=== PATIENT | female | born 1955 | race Caucasian/White ===

== ENCOUNTER → 2018-04-10 08:22 | Outpatient (CLI) | payer OTHER, SELFPAY ==
--- NOTE | 2018-04-10 08:25 | BI_ITS ---
MAMMOGRAPHY - BILATERAL SCREENING 3-D JANAK SYNTHESIS REASON FOR EXAM: Female, 62 years old. Bilateral Screening 3-D tomosynthesis PERTINENT HISTORY: No significant family history. TECHNIQUE: 2-D mammograms and 3-D Janak synthesis of the breast (s) were performed. CAD was performed. COMPARISON: None. FINDINGS: The breast composition is composed of scattered fibroglandular density. Scattered benign calcifications are seen. No dense spiculated masses or suspicious microcalcifications are identified. No architectural distortion is identified. There is no skin thickening or retraction. There has been no significant change since the prior study. BI/SCREENING MAMM (CAD), BILAT IMPRESSION: No mammographic signs of malignancy. Routine yearly mammograms recommended. ASSESSMENT CATEGORY: BIRADS Category 1: Negative. A letter regarding these results will be sent to the patient by the facility within 30 days. FOLLOW UP RECOMMENDATION: Yearly follow up mammogram recommended. (A) Approximately 10% of breast cancers are not detected by mammography. A normal mammogram should not delay biopsy of a clinically suspicious abnormality. Electronically Signed: Mayito Aranda MD at 8:40 EDT , Service support ,
== END ==
PROVIDERS: Family Provider Family Medicine; PCP Family Medicine; Visit Provider Obstetrics & Gynecology
DX: Z12.31 Encounter for screening mammogram for malignant neoplasm of breast (principal)
CPT/HCPCS: 77063; 77067

== ENCOUNTER → 2018-05-23 08:24 | Outpatient (CLI) | payer OTHER, SELFPAY ==
[2018-05-30 11:22] LABS: HPV APTIMA, High Risk Negative (Negative)
== END ==
PROVIDERS: Family Provider Family Medicine; PCP Family Medicine; Visit Provider Obstetrics & Gynecology
DX: Z12.4 Encounter for screening for malignant neoplasm of cervix (principal)
CPT/HCPCS: 88175; G0145

== ENCOUNTER → 2019-05-02 | Outpatient (CLI) | payer OTHER, SELFPAY ==
[2019-04-18 08:32] VITALS: BMI 47.3
--- NOTE | 2019-05-02 11:01 | BI_ITS ---
MAMMOGRAPHY - BILATERAL SCREENING REASON FOR EXAM: Female, 63 years old. Routine annual screening examination. PERTINENT HISTORY: Non-contributory. TECHNIQUE: Digital bilateral breast janak (3D mammographic acquisition) in the CC and MLO projections. 2-D mediolateral oblique (MLO) and craniocaudad (CC) views of both breasts were obtained. CAD: Full Field Digital Mammography with Computer Added Detection was performed. COMPARISON: Comparison is made with prior study April 10, 2018. FINDINGS: Breast Composition: There are scattered areas of fibroglandular density. There are no dominant masses or suspicious calcifications. No other significant abnormalities are identified. There has been no significant change since the prior study. BI/SCREEN MAMM (CAD) W/JANAK BILAT IMPRESSION: Stable bilateral screening mammogram. Yearly follow-up mammogram recommended. (A) ASSESSMENT CATEGORY: BIRADS Category 1: Negative. A letter regarding these results will be sent to the patient by the facility within 30 days. Approximately 10% of breast cancers are not detected by mammography. A normal mammogram should not delay biopsy of a clinically suspicious abnormality. [id number] Electronically Signed: Kraig Hancock, at 12:51 EDT , Service support ,
== END | disposition home or self-care (01) ==
LOC: OPBI 10:59
PROVIDERS: Family Provider Family Medicine; PCP Family Medicine; Referring Provider Obstetrics & Gynecology; Visit Provider Obstetrics & Gynecology
DX: Z12.31 Encounter for screening mammogram for malignant neoplasm of breast (principal)
CPT/HCPCS: 77063; 77067

== ENCOUNTER → 2019-07-18 | Outpatient (CLI) | payer OTHER, SELFPAY ==
[2019-07-18 09:51] VITALS: BMI 47.3
[2019-07-18 10:42] LABS: Absolute Lymphocyte Count 1.47 X10^3/uL (0.83-4.51); Absolute Neutrophil Count 3.5 X10^3/uL (2.0-7.7); Basophil# 0.05 X10^3/uL; Basophil% 0.9 % (0-1); Eosinophil# 0.04 X10^3/uL; Eosinophils% 0.7 % (0-5); Hematocrit 45.6 % (37-47); Hemoglobin 14.8 g/dL (12.0-15.0); Lymphocyte # 1.47 X10^3/ul (4.0); Lymphocyte % 26.7 % (19-41); Mean Corp Hgb Conc 32.5 g/dL (32-36); Mean Corpuscular Hgb 31.4 pg (27.0-32.0); Mean Corpuscular Volume 96.8 fL (81-99); Monocyte# 0.46 X10^3/uL; Monocyte% 8.4 % (0-10); NRBC Flagged by Analyzer 0 % (0-5); Neutrophil # 3.47 X10^3/uL (2.7-7.7); Neutrophil % 63.1 % (47-70); Platelet Count 177 K/mm3 (150-450); RBC Distribution Width CV 12.1 % (11.6-14.6); RBC Distribution Width SD 43.8 fl (35.1-43.9); Red Blood Count 4.71 M/mm3 (4.2-5.4); White Blood Count 5.5 K/mm3 (4.4-11.0)
[2019-07-18 11:06] LABS: Thyroid Stim Hormone (TSH) 2.78 uIU/mL (0.358-3.74)
== END | disposition home or self-care (01) ==
LOC: PAVLAB 10:12
PROVIDERS: Family Provider Family Medicine; PCP Family Medicine; Referring Provider Nurse Practitioner Women's Health; Visit Provider Nurse Practitioner Women's Health
DX: R23.2 Flushing (principal)
CPT/HCPCS: 36415; 84443; 85025

== ENCOUNTER → 2020-05-04 08:12 | Outpatient (CLI) | payer OTHER, SELFPAY ==
[2019-07-18 09:51] VITALS: BMI 47.3
[2019-11-25 08:49] VITALS: BMI 47.3
--- NOTE | 2020-05-04 08:13 | BI_ITS ---
MAMMOGRAPHY - BILATERAL SCREENING 3-D TOMOSYNTHESIS REASON FOR EXAM: Female, 64 years old. Routine screening PERTINENT HISTORY: NO FAM HX -- GAINED 40# -- NO SX -- BILAT HEMANGIOMAS. TECHNIQUE: 2-D mammograms and 3-D Tomosynthesis of the breast (s) were performed. CAD was performed. COMPARISON: 05/02/2019 FINDINGS: The breast composition is composed of scattered fibroglandular density. Scattered benign calcifications are seen. No dense spiculated masses or suspicious microcalcifications are identified. No architectural distortion is identified. There is no skin thickening or retraction. There has been no significant change since the prior study. BI/SCREEN MAMM (CAD) W/JANAK BILAT IMPRESSION: No mammographic signs of malignancy. Routine yearly mammograms recommended. ASSESSMENT CATEGORY: BIRADS Category 2: Benign. A letter regarding these results will be sent to the patient by the facility within 30 days. FOLLOW UP RECOMMENDATION: Yearly follow up mammogram recommended. (A) Approximately 10% of breast cancers are not detected by mammography. A normal mammogram should not delay biopsy of a clinically suspicious abnormality. Electronically Signed: Mayito Aranda MD at 11:04 EDT , Service support ,
== END ==
PROVIDERS: PCP Family Medicine; Referring Provider Obstetrics & Gynecology; Visit Provider Obstetrics & Gynecology
DX: Z12.31 Encounter for screening mammogram for malignant neoplasm of breast (principal)
CPT/HCPCS: 77063; 77067

== ENCOUNTER → 2020-09-15 13:17 | Outpatient (CLI) | payer OTHER, MEDICARE, SELFPAY ==
[2020-08-21 10:50] VITALS: BMI 41.1
[2020-09-15 14:07] VITALS: PULSE 109; PULSE 114; PULSE 121; PULSE 132; PULSE 134; PULSE 136; PULSE 82; PULSE 84; O2SAT 88; O2SAT 91; O2SAT 93; O2SAT 94; O2SAT 97; O2SAT 98
--- NOTE | 2020-09-15 14:10 | CPS ---
Patient states she currently wears 3 lpm O2 at home and came in on home O2 tank. Patient was 97% on room air so testing was started on room air. At the 4th minute adore patient wanted to take a rest, SpO2 89% then dropped to 88%, patient rested for about 5 seconds and SpO2 went up to 94%. Patient stated she could feel her heart racing and rested for another 20 seconds before starting to walk again. Patient did complete the rest of the test on room air.
--- NOTE | 2020-09-16 08:47 | PCM.PSN.6M ---
PSN 6 Minute Walk Test - 6 Minute Walk Test 6 Minute Walk Test: 6 Minute Walk Test PSN:6-Minute Walk Test Start: 09/15/20 14:07 Freq: Status: Active Protocol: RESP.6MINW Document 09/15/20 14:07 [facility] (Rec: 09/15/20 14:14 [facility] [id number]) 6 Minute Walk Test Date Performed 09/15/20 Time Performed 13:30 Height 5 ft 3 in Weight: 245 lb Weight in Pounds 245.[address]: Ciaran Fitzpatrick Assistive device used: None Pre-test Oxygen Delivery Method Room Air Pulse Ox (%) 97 Pulse Rate (60-100 beats/min) 84 Dyspnea Radha Scale (0-10) 0 Exertion Radha Scale (6-20) 6 1st minute Oxygen Delivery Method Room Air Pulse Ox (%) 97 Pulse Rate (60-100 beats/min) 114 H 2nd minute Oxygen Delivery Method Room Air Pulse Ox (%) 93 Pulse Rate (60-100 beats/min) 134 H 3rd minute Oxygen Delivery Method Room Air Pulse Ox (%) 91 Pulse Rate (60-100 beats/min) 132 H 4th minute Oxygen Delivery Method Room Air Pulse Ox (%) 88 Pulse Rate (60-100 beats/min) 136 H Number of Rests Taken 1 5th minute Oxygen Delivery Method Room Air Pulse Ox (%) 94 Pulse Rate (60-100 beats/min) 109 H 6th minute Oxygen Delivery Method Room Air Pulse Ox (%) 93 Pulse Rate (60-100 beats/min) 121 H Post-test Oxygen Delivery Method Room Air Pulse Ox (%) 98 Pulse Rate (60-100 beats/min) 82 Full Laps Walked 12 Partial Lap, Number of Tiles Walked 0 Total Distance Walked (ft) 708 09/15/20 14:10 Cardiopulmonary Services by Jazzy Chaudhari Patient states she currently wears 3 lpm O2 at home and came in on home O2 tank. Patient was 97% on room air so testing was started on room air. At the 4th minute adore patient wanted to take a rest, SpO2 89% then dropped to 88%, patient rested for about 5 seconds and SpO2 went up to 94%. Patient stated she could feel her heart racing and rested for another 20 seconds before starting to walk again. Patient did complete the rest of the test on room air. Initialized on 09/15/20 14:10 - END OF NOTE - Interpretation Interpretation: The patient ambulated 708 feet over the course of 6 minutes beginning on room air without assistive devices or breaks. Pretesting oxygen saturation was noted to be 97% on room air. With ambulation, the patt oxygen saturation was 88%. The patient did become progressively tachycardic with exertion. This testing indicated the presence of impaired walk distance along with significant exertional oxygen desaturation consistent with a pulmonary limitation to exercise tolerance. - Recommendations Recommendations: 2 L/min of supplemental oxygen should be utilized with exertion. Recommend repeat walk test in approximately 3 months to reassess ongoing supplemental oxygen need.
== END ==
PROVIDERS: PCP Family Medicine; Referring Provider Internal Medicine Critical Care Medicine; Visit Provider Internal Medicine Critical Care Medicine
DX: J96.11 Chronic respiratory failure with hypoxia (principal)
CPT/HCPCS: 94618

== ENCOUNTER → 2020-10-01 12:28 | Outpatient (CLI) | payer MEDICARE, OTHER, SELFPAY ==
[2020-08-21 10:50] VITALS: BMI 41.1
== END ==
PROVIDERS: PCP Family Medicine; Referring Provider Internal Medicine; Visit Provider Internal Medicine
DX: R00.0 Tachycardia, unspecified (principal)
CPT/HCPCS: 93225; 93226

== ENCOUNTER → 2020-12-17 07:55 | Outpatient (CLI) | payer MEDICARE, OTHER, SELFPAY ==
[2020-10-02 13:11] VITALS: BMI 43.7
[2020-12-17 08:15] VITALS: PULSE 101; PULSE 102; PULSE 103; PULSE 66; PULSE 74; PULSE 95; PULSE 96; O2SAT 93; O2SAT 94; O2SAT 96; O2SAT 97; O2SAT 98
--- NOTE | 2020-12-17 12:49 | PCM.PSN.6M ---
PSN 6 Minute Walk Test - 6 Minute Walk Test 6 Minute Walk Test: 6 Minute Walk Test PSN:6-Minute Walk Test Start: 12/17/20 08:28 Freq: Status: Active Protocol: RESP.6MINW Document 12/17/20 08:15 [facility] (Rec: 12/17/20 08:32 [facility] [id number]) 6 Minute Walk Test Date Performed 12/17/20 Time Performed 08:15 Height 5 ft 3 in Weight: 112.491 kg Weight in Pounds 248.[address]: Simran Assistive device used: None Pre-test Oxygen Delivery Method Room Air Pulse Ox (%) 96 Pulse Rate (60-100 beats/min) 66 Dyspnea Radha Scale (0-10) 0 Exertion Radha Scale (6-20) 6 1st minute Oxygen Delivery Method Room Air Pulse Ox (%) 98 Pulse Rate (60-100 beats/min) 96 2nd minute Oxygen Delivery Method Room Air Pulse Ox (%) 96 Pulse Rate (60-100 beats/min) 102 H 3rd minute Oxygen Delivery Method Room Air Pulse Ox (%) 94 Pulse Rate (60-100 beats/min) 103 H 4th minute Oxygen Delivery Method Room Air Pulse Ox (%) 93 Pulse Rate (60-100 beats/min) 103 H 5th minute Oxygen Delivery Method Room Air Pulse Ox (%) 94 Pulse Rate (60-100 beats/min) 101 H 6th minute Oxygen Delivery Method Room Air Pulse Ox (%) 93 Pulse Rate (60-100 beats/min) 95 Dyspnea Radha Scale (0-10) 1 Exertion Radha Scale (6-20) 10 Post-test Oxygen Delivery Method Room Air Pulse Ox (%) 97 Pulse Rate (60-100 beats/min) 74 Full Laps Walked 19 Partial Lap, Number of Tiles Walked 24 Total Distance Walked (ft) 1145 - Interpretation Interpretation: The patient was able to ambulate 1145 feet over the course of 6 minutes on room air with no assistive devices or breaks. No significant desaturation was noted, but patient did have a peak heart rate of 103 bpm. These findings are consistent with deconditioning. - Recommendations Recommendations: No supplemental oxygen is indicated at this time.
== END ==
PROVIDERS: PCP Internal Medicine; Referring Provider Nurse Practitioner Acute Care; Visit Provider Nurse Practitioner Acute Care
DX: J96.90 Respiratory failure, unspecified, unspecified whether with hypoxia or hypercapnia (principal)
CPT/HCPCS: 94618

== ENCOUNTER → 2021-05-21 12:31 | Outpatient (CLI) | payer MEDICARE, OTHER, SELFPAY ==
[2020-12-23 10:23] VITALS: BMI 44.1
--- NOTE | 2021-05-21 12:33 | BI_ITS ---
MAMMOGRAPHY - BILATERAL SCREENING 3-D TOMOSYNTHESIS REASON FOR EXAM: Female, 65 years old. screening PERTINENT HISTORY: No significant family history. TECHNIQUE: 2-D mammograms and 3-D Tomosynthesis of the breast (s) were performed. CAD was performed. COMPARISON: 05/04/2020 FINDINGS: The breast composition is heterogeneously dense that can obscure small breast masses. Scattered benign calcifications are seen. No dense spiculated masses or suspicious microcalcifications are identified. No architectural distortion is identified. There is no skin thickening or retraction. There has been no significant change since the prior study. BI/SCRN MAMM (CAD)W/JANAK BILAT IMPRESSION: No mammographic signs of malignancy. Routine yearly mammograms recommended. ASSESSMENT CATEGORY: BIRADS Category 1: Negative. A letter regarding these results will be sent to the patient by the facility within 30 days. FOLLOW UP RECOMMENDATION: Yearly follow up mammogram recommended. (A) Approximately 10% of breast cancers are not detected by mammography. A normal mammogram should not delay biopsy of a clinically suspicious abnormality. Electronically Signed: Skip Dunlap MD at 13:35 EDT Tel , Service support ,
== END ==
PROVIDERS: PCP Internal Medicine; Referring Provider Nurse Practitioner Women's Health; Visit Provider Nurse Practitioner Women's Health
DX: Z12.31 Encounter for screening mammogram for malignant neoplasm of breast (principal)
CPT/HCPCS: 77063; 77067

== ENCOUNTER 2022-04-05 09:54 | Emergency (ER) | payer MEDICARE, OTHER, SELFPAY ==
[2022-04-05 09:54] VITALS: BP 220/107; PULSE 87; RESP 97; TEMP 36.1; O2SAT 22; BMI 46.9
--- NOTE | 2022-04-05 10:17 | RAD_ITS ---
STUDY: X-RAY CHEST REASON FOR EXAM: Female, 66 years old. Chest pain and upper back pain TECHNIQUE: PA and lateral views of the chest. COMPARISON: None. FINDINGS: Hyperinflation. The lungs are clear. There is no demonstrated pleural abnormality. Normal size heart. Normal mediastinum and enio. Normal visualized pulmonary arteries. There is atherosclerotic calcification of the aortic arch with tortuosity. There are diffuse degenerative changes of the visualized thoracic spine. Normal visualized ribs, clavicles, and shoulders. There is no demonstrated abnormality of the visualized soft tissue structures of the upper abdomen. RAD/Chest PA and Lateral IMPRESSION: Hyperinflation. The lungs are clear. Electronically Signed: Kraig Hancock MD at 10:59 EDT ,
--- NOTE | 2022-04-05 10:19 | NURSING ---
NO OLD EKGS
--- NOTE | 2022-04-05 10:36 | EX.ED.DYSGE1 ---
HPI History of Present Illness Chief Complaint: Back Detail of Chief Complaint: Intermittent left-sided chest pain and bilateral upper back pain Informant: patient Onset/Context/Timing Onset: Weeks Context: Sudden Onset Timing: Intermittent Quality: Pain Location: Left anterior chest and bilateral upper back pain Current Severity: Gone Maximum Severity: Moderate Worsened by: Nothing Relieved by: Nothing Associated Symptoms Associated Symptoms: There are no associated symptoms Narrative Narrative: Patient is a 66-year-old female who presents with intermittent bilateral upper back pain and left-sided chest pain for the past couple weeks. Patient states she is going out of town and wanted to make sure there was nothing significant going on. She denies any exacerbating, precipitating or alleviating factors. She presently does not have pain. She has no associated symptoms. She is status postcholecystectomy. She denies history of VTE. She denies leg pain, swelling discoloration. She denies food intolerance. She denies black or maroon-colored stool. She denies history of GERD, reflux or hiatal hernia. Prior similar symptoms: No Recent Illness/Hospitalization: No PFSH PFSH Medical History Osteoporosis Tachycardia Home Medications metoprolol succinate 25 mg tablet,extended release 24 hr 12.5 mg PO DAILY 04/05/22 [History Last Taken Unknown] trospium 20 mg tablet 20 mg PO BID 04/05/22 [History Last Taken Unknown] Allergy/AdvReac Type Severity Reaction Status Date / Time No Known Allergies Allergy Verified 04/05/22 10:25 Family History Mother Osteoporosis Surgical History Hx laparoscopic cholecystectomy Tubal ligation status Social History (Updated 04/05/22 @ 10:[address] Rj Mansfield MD) household members: none Smoking Status: Never smoker alcohol intake: never substance use type: does not use caffeine: Yes what type of physical activity do you participate in: none seatbelt use: always do you feel safe at home: Yes additional social history: - Joey (Hyperoptic) ROS ROS ED Constitutional Constitutional ED: Denies chills, fever(s), subjective, sweats or weight loss Eyes Eyes: Denies blurry vision, change in vision or diplopia ENT ENT ED: Denies ear pain, rhinorrhea or sore throat Cardiovascular Cardiovascular: Reports chest pain; Denies orthopnea, palpitations, paroxysmal nocturnal dyspnea or racing heartbeat Respiratory/Chest Respiratory/Chest: Reports cough; Denies dyspnea, dyspnea on exertion, orthopnea or paroxysmal nocturnal dyspnea Gastrointestinal Gastrointestinal: Denies abdominal pain, diarrhea, melena, nausea or vomiting Genitourinary Genitourinary ED: Denies dysuria, hematuria or urinary frequency Musculoskeletal Musculoskeletal: Reports back pain; Denies arthralgias, myalgias or neck pain Integumentary Denies abscess, Abrasions or rash Neurologic Neurologic: Denies paresthesias or weakness Hematologic/Lymphatic Hematologic/Lymphatic: Denies easy bleeding, easy bruising or lymphadenopathy EXAM Physical Exam Const Vital Signs: 04/05/22 09:54 Temperature 97.0 F L Temperature Source Temporal Pulse Rate 87 Respiratory Rate 97 H Blood Pressure 220/107 H Blood Pressure Mean 144 Pulse Ox 22 Oxygen Delivery Method Nasal Cannula Positive well nourished, well developed and obese General Appearance ED: well developed and NAD; Negative for cyanotic, diaphoretic or pallor Nutritional Appearance: obese HEENT Reports moist mucous membranes Eyes PERRL and EOMs intact bilaterally General Eye ED: Negative for pale conjunctiva or scleral icterus Neck no lymphadenopathy, supple and no JVD Resp normal respiratory effort and clear to auscultation bilaterally Cardio regular rate, regular rhythm, S1 normal heart sound, S2 normal heart sound and no murmurs GI normal to inspection, nondistended, normoactive bowel sounds, non-tender and non-distended; Negative for hepatosplenomegaly Back/Spine no CVA tenderness Cervical Spine: Negative for cervical spine tenderness Thoracic Spine / Upper Back: Negative for thoracic spinal tenderness Lumbar Spine / Lower Back: Negative for lumbar spinal tenderness Extremity normal to inspection Extremity Narrative: There is no asymmetry, swelling, discoloration, leg vein distention, palpable cords or tenderness along the distribution of the deep venous system. General Extremety ED: Negative for edema or tenderness General Extremity: Negative for edema Neuro oriented x3, CN's II-XII intact bilaterally and no sensory deficits noted Sensorium / Orientation: alert Motor Exam: strength 5/5 throughout Psych mental status grossly normal Skin no rashes or lesions noted, no wounds and skin turgor normal General Skin Exam: Negative for jaundice or pallor MDM MDM MDM Narrative Medical decision making narrative: Patient presents with atypical chest and back pain. Suspect muscular etiology. Will obtain chest x-ray, EKG and appropriate blood work to assess cardiac versus noncardiac etiology Lab Data Attestation: I reviewed the patient's lab results. Lab results narrative: CBC is unremarkable. BMP reveals mild elevation of creatinine with a GFR of 46. Labs: Laboratory Results - last 24 hr 04/05/22 04/05/22 10:35 10:35 WBC 5.9 RBC 4.70 Hgb 14.8 Hct 45.2 MCV 96.2 MCH 31.5 MCHC 32.7 RDW Std Deviation 43.1 RDW Coeff of Janet 12.1 Plt Count 218 MPV 11.2 Immature Gran % (Auto) 0.500 Neut % (Auto) 66.9 Lymph % (Auto) 21.2 [place] % (Auto) 9.1 Eos % (Auto) 1.4 Baso % (Auto) 0.9 Absolute Neuts (auto) 3.9 Absolute Lymphs (auto) 1.24 Nucleated RBC % 0 Sodium 142 Potassium 3.9 Chloride 109 H Carbon Dioxide 28.0 Anion Gap 5 BUN 18 Creatinine 1.24 H Estim Creat Clear Calc 36.92 Est GFR (MDRD) Af Amer 56 L Est GFR (MDRD) Non-Af 46 L BUN/Creatinine Ratio 14.5 Glucose 128 H Calcium 9.2 Troponin I High Sens 4 Radiography Chest X-Ray - ED: 2 View, Read by ED Physician (Independently reviewed and interpreted by me at 1054), Unchanged, Normal, Heart, Lungs, Mediastinum, Bony Structures and No Acute Disease Diagnostic Testing: Clinical Impression(s) from Imaging Studies Chest X-Ray 04/05/22 10:17 IMPRESSION: Hyperinflation. The lungs are clear. Electronically Signed: Kraig Hancock MD at 10:59 EDT , EKG Initial EKG: Attestation: I personally reviewed and interpreted this EKG as follows: Interpretation: Sinus Rhythm (Normal sinus rhythm rate of 81. GA intervals 170 ms. Cures duration 82 ms. QT duration 380 ms. [place] is normal. Patient does have low voltage. This most likely is due to body habitus. BMI is 46.9) Discharge Plan Triage Chief Complaint: Back ED Provider: Rj Mansfield Dx/Rx/DC Orders Clinical Impression: Acute upper back pain, Intermittent left-sided chest pain Instructions: ED Chest Pain, Noncardiac, ED Back Pain (Acute or Chronic) Prescriptions: No Action metoprolol succinate 25 mg tablet extended release 24 hr 12.5 mg PO DAILY Label Comments: TAKE 1/2 TABLET BY MOUTH ONCE DAILY trospium 20 mg tablet 20 mg PO BID Label Comments: TAKE 1 TABLET BY MOUTH TWICE A DAY Primary Care Provider: Yaquelin Miller Referrals: Yaquelin Miller MD [Primary Care Provider] - As Needed Disposition Disposition: Home, Self Care
[2022-04-05 10:47] LABS: Absolute Lymphocyte Count 1.24 X10^3/uL (0.83-4.51); Absolute Neutrophil Count 3.9 X10^3/uL (2.0-7.7); Basophil# 0.05 X10^3/uL; Basophil% 0.9 % (0-1); Eosinophil# 0.08 X10^3/uL; Eosinophils% 1.4 % (0-5); Hematocrit 45.2 % (37-47); Hemoglobin 14.8 g/dL (12.0-15.0); Lymphocyte # 1.24 X10^3/ul (0.83-4.51); Lymphocyte % 21.2 % (19-41); Mean Corp Hgb Conc 32.7 g/dL (32-36); Mean Corpuscular Hgb 31.5 pg (27.0-32.0); Mean Corpuscular Volume 96.2 fL (81-99); Mean Platelet Vol. 11.2 fl (6.2-12.0); Monocyte# 0.53 X10^3/uL; Monocyte% 9.1 % (0-10); NRBC Flagged by Analyzer 0 % (0-5); Neutrophil # 3.92 X10^3/uL (2.7-7.7); Neutrophil % 66.9 % (47-70); Platelet Count 218 K/mm3 (150-450); RBC Distribution Width CV 12.1 % (11.6-14.6); RBC Distribution Width SD 43.1 fl (35.1-43.9); White Blood Count 5.9 K/mm3 (4.4-11.0)
[2022-04-05 11:03] LABS: Anion Gap 5 (5-15); BUN 18 mg/dL (7-18); BUN/Creat Ratio 14.5 RATIO (10-20); Calcium,Total 9.2 mg/dL (8.5-10.1); Chloride 109 mmol/L (98-107); Creatinine, Serum 1.24 mg/dL (0.55-1.02); EST Glomerular Filtration Rate 46 mL/min (>60); Est Glom Filt Rate - Afr Amer 56 mL/min (>60); Estimated Creatinine Clearance 36.92 ml/min; Glucose 128 mg/dL (74-106); Potassium 3.9 mmol/L (3.5-5.1); Sodium Level 142 mmol/L (136-145); Troponin-I HS 4 pg/mL (3.0-54.0)
[2022-04-05 11:36] VITALS: BP 168/87; PULSE 78; RESP 16; O2SAT 97
== END 2022-04-05 11:36 | disposition home or self-care (01) ==
PROVIDERS: Emergency Provider Emergency Medicine; PCP Internal Medicine; Visit Provider Emergency Medicine
DX: M54.9 Dorsalgia, unspecified (principal); R07.9 Chest pain, unspecified; E66.9 Obesity, unspecified; Z79.899 Other long term (current) drug therapy
CPT/HCPCS: 71046; 80048; 84484; 85025; 93005; 99283

== ENCOUNTER → 2022-05-24 | Outpatient (CLI) | payer MEDICARE, OTHER, SELFPAY ==
--- NOTE | 2022-05-24 07:58 | BI_ITS ---
MAMMOGRAPHY - BILATERAL SCREENING REASON FOR EXAM: Female, 66 years old. Routine annual screening examination. PERTINENT HISTORY: Non-contributory. TECHNIQUE: Digital bilateral breast janak (3D mammographic acquisition) in the CC and MLO projections. 2-D mediolateral oblique (MLO) and craniocaudad (CC) views of both breasts were obtained. CAD: Full Field Digital Mammography with Computer Added Detection was performed. COMPARISON: Comparison is made with prior study 05/21/2021 and 05/04/2020. FINDINGS: Breast Composition: There are scattered areas of fibroglandular density. There are no dominant masses or suspicious calcifications. Stable small benign-appearing bilateral axillary lymph nodes. No other significant abnormalities are identified. There has been no significant change since the prior study. BI/SCRN MAMM (CAD)W/JANAK BILAT IMPRESSION: Stable bilateral screening mammogram. Yearly follow-up mammogram recommended. (A) ASSESSMENT CATEGORY: BIRADS Category 2: Benign. A letter regarding these results will be sent to the patient by the facility within 30 days. Approximately 10% of breast cancers are not detected by mammography. A normal mammogram should not delay biopsy of a clinically suspicious abnormality. [id number] Electronically Signed: Kraig Hancock MD at 8:36 EDT ,
== END | disposition home or self-care (01) ==
LOC: OPBI 07:56
PROVIDERS: PCP Internal Medicine; Visit Provider Obstetrics & Gynecology
DX: Z12.31 Encounter for screening mammogram for malignant neoplasm of breast (principal)
CPT/HCPCS: 77063; 77067

== ENCOUNTER → 2023-06-02 | Outpatient (CLI) | payer MEDICARE, OTHER, SELFPAY ==
--- NOTE | 2023-06-02 07:19 | BI_ITS ---
MAMMOGRAPHY - BILATERAL SCREENING REASON FOR EXAM: Female, 67 years old. Routine annual screening examination. PERTINENT HISTORY: Non-contributory. TECHNIQUE: Digital bilateral breast janak (3D mammographic acquisition) in the CC and MLO projections. 2-D mediolateral oblique (MLO) and craniocaudad (CC) views of both breasts were obtained. CAD: Full Field Digital Mammography with Computer Added Detection was performed. COMPARISON: Comparison is made with prior study August 23, 2022 and May 21, 2021. FINDINGS: Breast Composition: There are scattered areas of fibroglandular density. There are no dominant masses or suspicious calcifications. No other significant abnormalities are identified. There has been no significant change since the prior study. BI/SCRN MAMM (CAD)W/JANAK BILAT IMPRESSION: Stable bilateral screening mammogram. Yearly follow-up mammogram recommended. (A) ASSESSMENT CATEGORY: BIRADS Category 1: Negative. A letter regarding these results will be sent to the patient by the facility within 30 days. Approximately 10% of breast cancers are not detected by mammography. A normal mammogram should not delay biopsy of a clinically suspicious abnormality. [id number] Electronically Signed: Kraig Hancock MD at 8:50 EDT ,
== END | disposition home or self-care (01) ==
LOC: OPBI 07:18
PROVIDERS: PCP Internal Medicine; Referring Provider Nurse Practitioner Women's Health; Visit Provider Nurse Practitioner Women's Health
DX: Z12.31 Encounter for screening mammogram for malignant neoplasm of breast (principal)
CPT/HCPCS: 77063; 77067

== ENCOUNTER 2024-05-04 07:35 | Emergency (ER) | payer MEDICARE, OTHER, SELFPAY ==
[2024-05-04 07:36] VITALS: BP 153/95; PULSE 98; RESP 22; TEMP 36.2; O2SAT 97; BMI 45.0
--- NOTE | 2024-05-04 08:38 | EX.ED.DYSGE1 ---
HPI History of Present Illness Chief Complaint: Cold Sx Informant: patient Narrative Narrative: Patient is a 68-year-old female with history of hypertension and prior severe COVID in 2019 requiring intubation for 7 days and a hospitalization for 23 days. She is presenting with cold-like symptoms and a positive home COVID test. She start having symptoms 2 days ago. She states mostly she just feels congested in her head. Denies any difficulty breathing, significant cough, fever or bodyaches. Because of her history came in to seek treatment for COVID with Paxlovid. Is presenting with her . No other complaints or concerns at this time. [facility] Medical History Tachycardia COVID-19 Respiratory failure Osteoporosis Home Medications ?Medication ?Instructions ?Recorded ?Last Taken ?Type metoprolol succinate 25 mg 12.5 mg PO DAILY 04/05/22 Unknown History tablet,extended release 24 hr trospium 20 mg tablet 20 mg PO BID 04/05/22 Unknown History nirmatrelvir 300 mg (150 mg See Rx Instructions PO .COMPLEX 05/04/24 Unknown Rx x2)-ritonavir 100 mg tablet,dose #30 tabs pack (Paxlovid) ondansetron 4 mg disintegrating 4 mg PO Q8H PRN PRN Nausea #10 tabs 05/04/24 Unknown Rx tablet Allergy/AdvReac Type Severity Reaction Status Date / Time No Known Allergies Allergy Verified 05/04/24 07:37 Family History Mother Osteoporosis Surgical History Tubal ligation status Hx laparoscopic cholecystectomy Social History household members: none Smoking Status: Never smoker alcohol intake: never substance use type: does not use caffeine: Yes what type of physical activity do you participate in: none seatbelt use: always do you feel safe at home: Yes additional social history: - Joey ([employer]) ROS ROS ED Constitutional Constitutional ED: Denies chills or fever(s) ENT ENT ED: Reports rhinorrhea and other Details: Nasal congestion ; Denies sore throat Cardiovascular Cardiovascular: Denies chest pain Respiratory/Chest Respiratory/Chest: Denies cough or dyspnea Gastrointestinal Gastrointestinal: Denies nausea or vomiting Musculoskeletal Musculoskeletal: Denies arthralgias or myalgias Integumentary Denies rash Neurologic Neurologic: Denies headache(s) EXAM Physical Exam Const Vital Signs: 05/04/24 07:36 Temperature 97.2 F L Temperature Source Temporal Pulse Rate 98 Respiratory Rate 22 H Blood Pressure 153/95 H Blood Pressure Mean 114 Pulse Ox 97 Oxygen Delivery Method Room Air Positive well nourished and well developed General Appearance ED: well developed and NAD HEENT Reports moist mucous membranes HEENT Narrative: Rhinorrhea present. Normal tympanic membranes bilateral. Normal oropharynx. Eyes PERRL and EOMs intact bilaterally Neck supple Chest Wall inspection of chest normal Resp normal respiratory effort and clear to auscultation bilaterally Cardio regular rate and regular rhythm GI normal to inspection, nondistended, normoactive bowel sounds and non-tender Extremity normal to inspection Neuro oriented x3 Sensorium / Orientation: alert Motor Exam: Negative for general weakness Psych mental status grossly normal Skin no rashes or lesions noted and no wounds MDM MDM MDM Narrative Medical decision making narrative: Patient evaluated for cold-like symptoms the positive home COVID test. Because of her age and prior, comorbidities and prior intubation and respiratory failure associate with COVID in 2020 will treat with Paxlovid. Will empirically be started on Zofran as well for nausea. Counseled to take [id number] Tylenol, Coricidin HBP and Mucinex as needed for symptomatic relief. Encouraged to push fluids. Given return precautions. Patient verbalized agreement understand this plan. Patient overall is quite well-appearing at this time I do not think requires further workup. Discharge Plan Triage Chief Complaint: Cold Sx ED Provider: Alise Palacio Dx/Rx/DC Orders Clinical Impression: COVID-19 Instructions: Coronavirus Disease 2019 (COVID-19): Caring for Yourself or Others Prescriptions: New Paxlovid 300 mg (150 mg x 2)-100 mg tablets,dose pack See Rx Instructions .ROUTE .COMPLEX Qty: 30 0RF Rx Instructions: take TWO 150 mg tablets of nirmatrelvir with ONE 100 mg tablet of ritonavir twice daily for 5 days ondansetron 4 mg tablet,disintegrating 4 mg PO Q8H PRN PRN (Reason: Nausea) Qty: 10 0RF No Action metoprolol succinate 25 mg tablet extended release 24 hr 12.5 mg PO DAILY Patient Comments: TAKE 1/2 TABLET BY MOUTH ONCE DAILY trospium 20 mg tablet 20 mg PO BID Patient Comments: TAKE 1 TABLET BY MOUTH TWICE A DAY Primary Care Provider: Yaquelin Miller Referrals: Yaquelin Miller MD [Primary Care Provider] - Activity Restrictions/Additional Instructions: Drink plenty of fluids. Take Tylenol for symptom relief. You may also take [id number] Coricidin HBP for head cold symptoms as well as Mucinex. You been given a paper copy of the prescription because some pharmacies do not have Paxlovid. You do not need to make any medication adjustments at this time with your home meds. Please return to the ER if you have a progression worsening your symptoms or further concerns. Print Language: Moroccan Disposition Disposition: Home, Self Care
[2024-05-04 08:52] VITALS: BP 151/79; PULSE 100; RESP 20; TEMP 36.6; O2SAT 98
== END 2024-05-04 08:52 | disposition home or self-care (01) ==
PROVIDERS: Emergency Provider Emergency Medicine; PCP Internal Medicine; Visit Provider Emergency Medicine
DX: U07.1 COVID-19 (principal); R11.0 Nausea; I10 Essential (primary) hypertension; Z90.49 Acquired absence of other specified parts of digestive tract; Z79.899 Other long term (current) drug therapy; Z98.51 Tubal ligation status
CPT/HCPCS: 99282

== ENCOUNTER → 2024-08-28 | Outpatient (CLI) | payer MEDICARE, OTHER, SELFPAY ==
--- NOTE | 2024-08-28 09:50 | BI_ITS ---
MAMMOGRAPHY - BILATERAL SCREENING REASON FOR EXAM: Female, 69 years old. Routine annual screening examination. PERTINENT HISTORY: Non-contributory. TECHNIQUE: Digital bilateral breast janak (3D mammographic acquisition) in the CC and MLO projections. 2-D mediolateral oblique (MLO) and craniocaudad (CC) views of both breasts were obtained. CAD: Full Field Digital Mammography with Computer Added Detection was performed. COMPARISON: Comparison is made with prior study dated June 02, 2023 and May 24, 2022. FINDINGS: Breast Composition: There are scattered areas of fibroglandular density. There now is a 1.6 cm x 2 cm nodular density in the lateral retroareolar region of the left breast. Correlation with ultrasound is recommended for further evaluation. No other significant abnormalities are identified. BI/SCRN MAMM (CAD)W/JANAK BILAT IMPRESSION: 1.65 x 2 cm nodular density in the lateral retroareolar region of the left breast as described. Correlation with ultrasound is recommended. ASSESSMENT CATEGORY: BIRADS Category 0: Incomplete. Need additional imaging evaluation. A letter regarding these results will be sent to the patient by the facility within 30 days. Approximately 10% of breast cancers are not detected by mammography. A normal mammogram should not delay biopsy of a clinically suspicious abnormality. [id number] Electronically Signed: Kraig Hancock MD at 11:14 EST ,
== END | disposition home or self-care (01) ==
LOC: OPBI 09:50
PROVIDERS: PCP Internal Medicine; Referring Provider Obstetrics & Gynecology; Visit Provider Obstetrics & Gynecology
DX: Z12.31 Encounter for screening mammogram for malignant neoplasm of breast (principal)
CPT/HCPCS: 77063; 77067

== ENCOUNTER → 2024-09-02 | Outpatient (CLI) | payer MEDICARE, OTHER, SELFPAY ==
--- NOTE | 2024-09-02 09:50 | US_ITS ---
STUDY: ULTRASOUND BREAST - LEFT REASON FOR EXAM: Female, 69 years old. Abnormal screening mammogram. TECHNIQUE: Axial and longitudinal images of the LEFT breast were performed with a high resolution ultrasound transducer. # OF IMAGES: 18 COMPARISON: Comparison is made with prior mammogram dated August 28, 2024. FINDINGS: LEFT Breast: The mammographic abnormality corresponds to a 2.1 cm x 1.8 cm x 1.7 cm irregular hypoechoic solid nodule with increased vascularity at the 4:00 position of the breast at 6 cm from the nipple. Biopsy is recommended. US/Breast Limited Unilateral IMPRESSION: 2.1 cm x 1.8 cm x 1.7 cm irregular hypoechoic solid nodule with increased vascularity at the 4:00 position breast 6 cm from the nipple. Biopsy recommended. ASSESSMENT CATEGORY: BIRADS Category 5: Highly Suggestive of Malignancy - Appropriate Action Should Be Taken. A letter regarding these results will be sent to the patient by the facility within 30 days. Electronically Signed: Kraig Hancock MD at 15:28 EST ,
== END | disposition home or self-care (01) ==
LOC: OPUS 09:48
PROVIDERS: PCP Internal Medicine; Referring Provider Obstetrics & Gynecology; Visit Provider Obstetrics & Gynecology
DX: N63.20 Unspecified lump in the left breast, unspecified quadrant (principal); R92.8 Other abnormal and inconclusive findings on diagnostic imaging of breast
CPT/HCPCS: 76642

== ENCOUNTER → 2024-09-04 | Outpatient (CLI) | payer MEDICARE, OTHER, SELFPAY ==
--- NOTE | 2024-09-04 | IMM_PTH ---
PATIENT: MANUEL BINGHAM LOC: [facility] U#:[id number] AGE/SX: 69/F ROOM: RE09/04/[address]: Dr. Aria Agosto MD : 1955 BED: DIS: 09/04/2024 SPEC #: [id number] RECD: 09/06/24 09:52 STATUS: ANA MARÍA REQ #: [id number] AIYANA: 09/04/24 00:[address]: Aria Agosto DEPT: IMMUNOHISTOCHEMISTRY RECD BY: Yovany Bloom ENTERED: 09/06/24 09:53 SP TYPE: IMMUNO OTHR DR: Dr. Yaquelin Miller MD Tissues: Left breast, NOS Procedures: E-CAD (initial) CALPONIN-1 (add) CK5-6 (add) CK8 (add) HER2 JESSENIA (add) KI-67 (add) P53 (add) TN (add) P40 (add) ER (initial) PHYSICIAN & INSTITUTION [place] [phone] SPECIMEN INFORMATION: Tissue Source: Left breast mass Clinical Info: Biopsy of left breast mass, BIRAD 5 Specimen Number: [id number] CPT code: 18173,8831x6,81379w5 METHODOLOGY: Deparaffinized sections of prefer/formalin-fixed tissue or PAP/DQ stained slides are incubated with monoclonal/polyclonal antibodies/oligonucleotide probes. Localization is made via biotin free immunoperoxidase method. Appropriate controls are performed and reacted as expected. Results on target cell population are indicated in the following table: RESULTS: ANTIBODY / CLONE RESULT E-Cad (ECH-6) positive CK8 ([id number]) positive Calponin-1 (ZX119K) negative CK5-6 (D5 & 1684) negative P40 (BC28) negative P53 (DO-7) positive, rare cells ( wild type pattern) Ki-67 (30-9) positive, about 30% MORPHOMETRIC ANALYSIS ER (clone 6F11) 0% negative TN (clone 16/1E2) 0% negative Her-2Neu (clone CB11) 3+ positive The prognostic test for HER2 is performed on formalin-fixed paraffin embedded tissue. A 3+ (positive) staining pattern is defined as intense, homogeneous, complete, circumferential membranous staining in >10% of contiguous tumor cells. A similar weak (2+) staining pattern is interpreted as equivocal. MARIANNE follow-up testing is recommended for all equivocal cases. Positivity/negativity for ER/TN is reported if > or < 1% of the tumor cells are immuno- reactive, respectively. The ASCO/CAP criteria is used for scoring. Reference: Journal of Clinical Oncology, 2013; 31:6377-6299 & 2010; 16:6579-0088. Ischemic time: Less than one hour. Duration of fixation: 24 Hrs; Sample Adequate: Yes. These assays have not been validated on decalcified tissues. Results should be interpreted with caution given the likelihood of false negativity on decalcified specimens or fixation greater than 72 hours. Alternative testing methods (FISH/dualISH for Her2; gene expression for ER) are recommended, if applicable. Please notify the laboratory if additional testing is required. These tests were developed and their performance characteristics determined by [facility]. They may not have been cleared or approved by the U.S. Food and Drug Administration. The FDA has determined that such clearance or approval is not necessary. The above immunohistochemical/dualISH markers are ordered and reviewed by the Pathologist. INTERPRETATION: Left breast mass, core biopsy: Invasive ductal carcinoma Negative for estrogen receptors (unfavorable prognostic indicator). Negative for progesterone receptors (unfavorable prognostic indicator). Positive for overexpression of ZXD5bxd. SJ:cc 09/09/2024
--- NOTE | 2024-09-04 14:40 | BRBX_PTH ---
PATIENT: MANUEL BINGHAM LOC: [facility] U#:[id number] AGE/SX: 69/F ROOM: RE09/04/[address]: Dr. Aria Agosto MD : 1955 BED: DIS: 09/04/2024 SPEC #: [id number] RECD: 09/04/24 14:57 STATUS: ANA MARÍA REQ #: [id number] AIYANA: 09/04/24 14:[address]: Aria Agosto DEPT: SURGICAL PATHOLOGY RECD BY: Mili Puente ENTERED: 09/05/24 08:04 SP TYPE: BREAST BX OTHR DR: Dr. Yaquelin Miller MD Tissues: Left breast, NOS Procedures: Surgery Specimen Level IV HEADER OPERATION: Left breast mass biopsy PRE-OP DIAGNOSIS: Biopsy of left breast mass, BIRAD 5 TISSUE SUBMITTED: Left breast mass tissue - 4o'clock, 6cm from nipple Ischemic Time: 1 minute Fixation Time: 24 hours MICROSCOPIC DIAGNOSIS Left breast mass, 4o'clock, 6cm from nipple, core biopsy: Invasive ductal carcinoma. See cancer summary in the comment section. 09/06/2024 COMMENT INVASIVE BREAST CANCER SUMMARY: Procedure: Needle core biopsy Specimen Laterality: Left breast Tumor site: 4o'clock, 6cm from nipple Histologic type: Invasive ductal carcinoma, not otherwise specified Provisional Histologic grade: Glandular/Tubule Differentiation Score: 3 Nuclear Pleomorphism Score: 2 Mitotic Rate Score: 1 Overall grade: Grade 2 (score of 6) Tumor Size (greatest dimension): invasive carcinoma measures 1.2cm in greatest length. Ductal Carcinoma Insitu: Not identified. Angiolymphatic Invasion: Not identified Microcalcifications: Not identified Additional Findings: none Breast Marker Study: [id number] ER: negative (0%) PA: negative (0%) Her2: positive (3+) Ki67: +, ~30% [id number]: not applicable. The above summary is in compliance with [employer] [place] [employer] (CAP) Cancer Protocols Checklist and [place] Joint Committee on Cancer (AJCC), Staging Manual, 8th Ed. Immunohistochemistry ([id number]) supports the above diagnosis. Case has been reviewed in consultation with Dr. Curtis who concurs with the above diagnosis. IDC:AM MICROSCOPIC DESCRIPTION Slides are reviewed. GROSS DESCRIPTION Received in fixative is one container labeled with the patient's name and designated Left breast mass tissue. The specimen consists of two elongated pieces of martinez-yellow fibroadipose tissue measuring in aggregate 1.7 x 0.3 x 0.1cm. The entire specimen is submitted in one cassette. 09/05/2024 TC:0 [facility]:[id number] ADDENDUM ADDENDUM ADDENDUM ADDENDUM ADDENDUM ADDENDUM ADDENDUM ADDENDUM ADDENDUM ADDENDUM ADDENDUM 10/08/2024 15:33 ADDENDUM 10/08/2024 15:33 ADDENDUM 10/08/2024 15:33 ADDENDUM 10/08/2024 15:33 ADDENDUM 10/08/2024 15:33 This addendum is added to incorporate an outside pathology consultation report. The case was examined at [facility] (#[id number]) and the following diagnosis was rendered. A. Left breast mass 4o'clock, 6cm from nipple, core biopsy: Invasive ductal carcinoma, grade 2, (score: tubule: 3, nuclear: 2, mitotic: 2), 1.2 cm in greatest length. Please see complete above mentioned consultation report in EMR
== END | disposition home or self-care (01) ==
LOC: LABSPEC 17:02
PROVIDERS: PCP Internal Medicine; Referring Provider Surgery; Visit Provider Surgery
DX: C50.912 Malignant neoplasm of unspecified site of left female breast (principal)
CPT/HCPCS: 88305; 88341; 88342

== ENCOUNTER → 2024-09-16 | Outpatient (CLI) | payer MEDICARE, OTHER, SELFPAY ==
--- NOTE | 2024-09-16 12:18 | MRI_ITS ---
STUDY: BILATERAL BREAST MR WITHOUT AND WITH CONTRAST REASON FOR EXAM: Female, 69 years old. Metastatic breast cancer TECHNIQUE: Multi-sequence multi-echo imaging of both breasts was performed with a dedicated breast coil. T1-weighted and T2-weighted images were performed before the administration of contrast. T1-weighted images were also performed after the intravenous administration of 22 mL of Clariscan contrast. COMPARISON: Screening mammograms dated May 2021, May 2022, May 2023 and August 2024. Left breast ultrasound dated August 23, 2024. FINDINGS: RIGHT BREAST: Fatty replaced breast tissue with no significant background enhancement. No abnormal enhancing masses or areas of non-mass enhancement in the right breast. LEFT BREAST: Fatty replaced breast tissue with minimal background enhancement. Irregular enhancing mass in the 4:00 position of the left breast 6 cm from the nipple measuring approximately 2.3 cm x 1.8 cm x 2.3 cm corresponding to the mass seen on most recent comparison and left breast ultrasound. No enlarged or abnormal lymph nodes. No abnormality in the visualized regions of the chest or liver. MRI/Breast Bilateral W/O and W IMPRESSION: Irregular enhancing mass in the left breast corresponding to the findings on the most recent comparison mammogram and the left breast ultrasound. No other lesions identified and no axillary adenopathy identified. CATEGORY: BIRADS Category 6: Known Biopsy-Proven Malignancy - Appropriate Action Should Be Taken. A letter regarding these results will be sent to the patient by the facility within 30 days. Electronically Signed: Jv Galaviz MD at 16:11 EST ,
[2024-09-16 12:47] LABS: CREATININE FINGERSTICK < 1.0 mg/dL (0.55-1.02); EGFR FINGERSTICK > 60.0000 mL/min (>60)
== END | disposition home or self-care (01) ==
LOC: MRI 12:03
PROVIDERS: PCP Internal Medicine; Referring Provider Surgery; Visit Provider Surgery
DX: C50.912 Malignant neoplasm of unspecified site of left female breast (principal)
CPT/HCPCS: 77049; A9575; A4216; C8908

== ENCOUNTER → 2024-09-25 | Outpatient (CLI) | payer MEDICARE, OTHER, SELFPAY ==
--- NOTE | 2024-09-25 08:07 | ECHOCSONC_ITS ---
Reason For Study: PRE CHEMOTHERAPY Procedure This was a 2D Doppler, Color Flow transthoracic echocardiogram. Myocardial strain analysis was performed in this exam to aid in the assessment of cardiac function. The study was technically difficult. Contrast injection was performed. Exam performed in department. Left Ventricle Normal LV size. The global longitudinal strain = -18.5 % (normal). The estimated ejection fraction is 60-65 %. No evidence for diastolic dysfunction. No regional wall motion abnormalities noted. Right Ventricle Normal RV size. Normal systolic function. Atria The left and right atria are normal. No doppler evidence for ASD. Mitral Valve There is no mitral valve stenosis. Trivial mitral valve insufficiency. Tricuspid Valve There is no tricuspid stenosis. Unable to estimate RV systolic pressure due to inadequate jet, pulmonary artery pressure probably normal. Aortic Valve Trisinus/trileaflet aortic valve. There is no aortic stenosis. No aortic valve insufficiency. Pulmonic Valve There is no pulmonic valvular stenosis. No pulmonic valve insufficiency. Great Vessels Normal aortic root. Pericardium/Pleural No pericardial effusion. Medication 22 gauge I.V. with prn adaptor inserted into left arm. Diluted definity 2.5ml given slow IV push to enhance endocardial definition. MMode/2D Measurements & Calculations LVIDd: 4.3 cm IVSd: 1.1 cm LVOT diam: 2.0 cm LVIDs: 2.6 cm LVPWd: 1.0 cm RVDd: 3.5 cm FS: 40.1 % LVOT area: 3.1 cm2 asc Aorta Diam: 3.7 cm LAV(MOD-bp): 52.7 ml LVAd ap4: 28.5 cm2 LAV(MOD-bp) Indexed: 24.5 ml/m2 LVLd ap4: 7.6 cm LAV(MOD-sp2): 53.0 ml EDV(MOD-sp4): 86.6 ml LAV(MOD-sp4): 49.3 ml EDV(sp4-el): 90.5 ml LVAs ap4: 17.1 cm2 LVLs ap4: 6.6 cm ESV(MOD-sp4): 38.1 ml ESV(sp4-el): 37.6 ml EF(MOD-sp4): 55.9 % EF(sp4-el): 58.4 % LVAd ap2: 30.5 cm2 SV(MOD-sp4): 48.4 ml SV(MOD-sp2): 60.6 ml LVLd ap2: 7.7 cm SI(MOD-sp4): 22.5 ml/m2 SI(MOD-sp2): 28.2 ml/m2 EDV(MOD-sp2): 101.6 ml EDV(sp2-el): 102.1 ml LVAs ap2: 17.2 cm2 LVLs ap2: 6.2 cm ESV(MOD-sp2): 41.0 ml ESV(sp2-el): 40.0 ml EF(MOD-sp2): 59.6 % SV(sp4-el): 52.9 ml Ao sinus diam: 3.[address] Junction: 3.0 cm LA dimension(2D): 4.0 cm LA A4 area: 18.1 cm2 RA A4 area: 15.4 cm2 TAPSE: 1.9 cm Time Measurements MV dec time: 0.17 sec Doppler Measurements & Calculations MV E max danny: 72.6 cm/sec Lat Peak E' Danny: 9.5 cm/sec Med Peak E' Danny: 6.4 cm/sec MV A max danny: 66.7 cm/sec E/E' lat: 7.6 E/E' med: 11.3 MV E/A: 1.1 MV dec slope: 425.1 cm/sec2 Ao V2 max: 122.6 cm/sec LV V1 max: 95.9 cm/sec Ao max P.0 mmHg LV V1 max P.7 mmHg Ao V2 mean: 96.3 cm/sec LV V1 mean P.1 mmHg Ao mean P.9 mmHg LV V1 mean: 67.1 cm/sec Ao V2 VTI: 29.7 cm LV V1 VTI: 22.8 cm AV (velocity ratio): 0.77 KHURRAM(I,D): 2.4 cm2 KHURRAM(V,D): 2.4 cm2 SV(LVOT): 71.1 ml PA V2 max: 85.2 cm/sec ECHO/ONC Echo Complete W/ Contrast Interpretation Summary No evidence for diastolic dysfunction. The estimated ejection fraction is 60-65 %. Trivial mitral valve insufficiency. Ordering Physician: Alberto Diane Referring Physician: Alberto Diane Performed By: Patsy Duff MILLIE
== END | disposition home or self-care (01) ==
LOC: CVS 08:04
PROVIDERS: PCP Internal Medicine; Referring Provider Internal Medicine Hematology & Oncology; Visit Provider Internal Medicine Hematology & Oncology
DX: Z01.818 Encounter for other preprocedural examination (principal)
CPT/HCPCS: 93306; 93356; Q9957; A4216; C8929

== ENCOUNTER 2024-10-20 10:38 | Emergency (ER) | payer MEDICARE, OTHER, SELFPAY ==
[2024-10-20 10:38] VITALS: BP 141/100; PULSE 122; RESP 18; TEMP 37.3; O2SAT 95; BMI 44.8
--- NOTE | 2024-10-20 11:36 | EX.ED.DYSGE1 ---
HPI <GLADYS Verde - Last Filed: 10/20/24 14:13> History of Present Illness Chief Complaint: Other, Pain/Inj Narrative Narrative: 69-year-old female started chemotherapy for breast cancer with her first treatment on October 15. It caused mouth ulcers which she states is expected but over the last 2 days she has had difficulty taking in fluids due to the pain from the ulcers. She has not had anything to eat. She had mild vomiting and diarrhea after the treatment but this has resolved. She had slight burning with urination this morning. No fever or chills, chest pain or shortness of breath, cough, or abdominal pain. She is scheduled to have a port placement tomorrow. She states her oncologist just called in a mouthwash for the ulcers and it did help but she is here concern for dehydration. [facility] <GLADYS Verde - Last Filed: 10/20/24 14:13> [facility] Medical History (Updated 10/20/24 @ 12:29 by GLADYS Verde) Wears glasses Thyroid disease History of IBS Gastric reflux Non-smoker History of Holter monitoring History of echocardiogram Impaired glucose tolerance Hypertension Dyslipidemia Invasive ductal carcinoma of breast Tachycardia COVID-19 Respiratory failure Osteoporosis Home Medications ?Medication ?Instructions ?Recorded ?Last Taken ?Type metoprolol succinate 25 mg 12.5 mg PO DAILY 04/05/22 Unknown History tablet,extended release 24 hr trospium 20 mg tablet 20 mg PO BID 04/05/22 Unknown History amlodipine 2.5 mg tablet 2.5 mg PO DAILY 09/04/24 Unknown History cholecalciferol (vitamin D3) 25 25 mcg PO QDAY 09/04/24 Unknown History mcg (1,000 unit) capsule levothyroxine 25 mcg tablet 25 mcg PO DAILY 09/04/24 Unknown History multivitamin 1 tab PO QAM 09/04/24 Unknown History pantoprazole 40 mg tablet,delayed 40 mg PO DAILY 09/04/24 Unknown History release calcium carbonate 600 mg PO QDAY 09/23/24 Unknown History zinc acetate 50 mg (zinc) capsule 50 mg PO QDAY 09/23/24 Unknown History Lactobacillus acidophilus 10 100 mmu cells PO DAILY 09/27/24 Unknown History billion cell capsule (NewFlora) Allergy/AdvReac Type Severity Reaction Status Date / Time No Known Allergies Allergy Verified 10/20/24 10:42 Family History Mother Osteoporosis Father Diabetes Heart disease Melanoma Surgical History Tubal ligation status Hx laparoscopic cholecystectomy Social History (Updated 10/20/24 @ 11:03 by Jia Martin) household members: none housing: house Smoking Status: Never smoker alcohol intake: never substance use type: does not use caffeine: Yes what type of physical activity do you participate in: none seatbelt use: always do you feel safe at home: Yes additional social history: - Joey ([employer]) ROS <GLADYS Verde - Last Filed: 10/20/24 14:13> ROS ED ROS Narrative Constitutional: Negative for fever, chills. CVS: Negative forchest pain, syncope. Respiratory: Negative for shortness of breath, cough. GI: Negative for abdominal pain, nausea, vomiting, diarrhea. EXAM <GLADYS Verde - Last Filed: 10/20/24 14:13> Physical Exam Narrative Exam Narrative: CONST: Patient sitting in no acute distress. EYES: Normal inspection. ENT: Dry mucous membranes, tongue has thrush, red irritation of the hard palate. NECK: Normal inspection. RESP: No respiratory distress, CTAB. CVS: Regular rate and rhythm, no murmur, no gallop. ABD: Soft and nontender, no guarding or rebound, nondistended. SKIN: Color normal, no rash, warm, dry, intact. EXTREMITIES: Normal appearance, no pedal edema. NEURO: Alert and answering questions appropriately. PSYCH: Normal affect. Const Vital Signs: 10/20/24 10:38 10/20/24 11:02 10/20/24 11:42 Temperature 99.1 F 98.9 F Temperature Source Oral Oral Pulse Rate 122 H 100 Respiratory Rate 18 16 Respiratory Effort Normal Non-Labored Respiratory Pattern Normal Blood Pressure 141/100 H 111/78 Blood Pressure Mean 113 89 Pulse Ox 95 93 Oxygen Delivery Method Room Air Room Air 10/20/24 12:48 10/20/24 13:09 Temperature 98.9 F 98.9 F Temperature Source Oral Pulse Rate 78 78 Respiratory Rate 18 18 Respiratory Effort Respiratory Pattern Blood Pressure 123/93 H 123/93 H Blood Pressure Mean 103 103 Pulse Ox 95 95 Oxygen Delivery Method Room Air <Dr. Marty Torre DO - Last Filed: 10/20/24 12:50> Physical Exam Const Vital Signs: 10/20/24 10:38 10/20/24 11:02 10/20/24 11:42 Temperature 99.1 F 98.9 F Temperature Source Oral Oral Pulse Rate 122 H 100 Respiratory Rate 18 16 Respiratory Effort Normal Non-Labored Respiratory Pattern Normal Blood Pressure 141/100 H 111/78 Blood Pressure Mean 113 89 Pulse Ox 95 93 Oxygen Delivery Method Room Air Room Air 10/20/24 12:48 10/20/24 13:09 Temperature 98.9 F 98.9 F Temperature Source Oral Pulse Rate 78 78 Respiratory Rate 18 18 Respiratory Effort Respiratory Pattern Blood Pressure 123/93 H 123/93 H Blood Pressure Mean 103 103 Pulse Ox 95 95 Oxygen Delivery Method Room Air MDM <GLADYS Verde - Last Filed: 10/20/24 14:13> MDM MDM Narrative Medical decision making narrative: History gathered from: Patient and her son Differential includes but not limited to dehydration, electrolyte abnormality, KRYSTLE 69-year-old female had her first chemotherapy for breast cancer 5 days ago and presents with mucositis that is causing dehydration. She has no other acute complaints. She appears well and nontoxic. BP was 141/100, HR 122, otherwise normal vital signs. She is afebrile. She does have mucositis/irritation of the roof of her mouth as well as thrush. I ordered IV fluids and blood work. Labs show new leukopenia at 1.3, normal hemoglobin at 14.3, and new thrombocytopenia at 114. She has normal electrolytes and renal function. Glucose is 162 with normal CO2 and anion gap. CO2 is a contaminated specimen and was sent for culture. After IV fluid she is feeling better on reevaluation. She has mouthwash for her oncologist for her mucositis, was instructed to increase fluids, and follow-up for her port placement as scheduled. She was discharged in stable condition. Lab Data Attestation: I reviewed the patient's lab results. Labs: Laboratory Results - last 24 hr 10/20/24 10/20/24 11:25 11:54 WBC 1.3 L* RBC 4.60 Hgb 14.3 Hct 43.2 MCV 93.9 MCH 31.1 MCHC 33.1 RDW Std Deviation 43.4 RDW Coeff of Janet 12.5 Plt Count 114 L MPV 13.8 H Neut % (Auto) Not Reportable Absolute Neuts (auto) 0.8 L Absolute Lymphs (auto) 0.41 L Total Counted 100 Neutrophils % (Manual) 59 Band Neutrophils % 1 Lymphocytes % (Manual) 31 Monocytes % (Manual) 4 Eosinophils % (Manual) 1 Metamyelocytes % 4 H Diff Path Review May foll Reactive Lymphocytes 2+ Platelet Estimate SLT DEC RBC Morphology Sodium 135 L Potassium 3.8 Chloride 104 Carbon Dioxide 21.0 Anion Gap 9 BUN 17 Creatinine 0.95 Estim Creat Clear Calc 68.24 Est GFR (MDRD) Af Amer 75 Est GFR (MDRD) Non-Af 62 BUN/Creatinine Ratio 17.8 Glucose 162 H Calcium 8.5 Urine Color Yellow Urine Clarity Clear Urine pH 6.0 Ur Specific [place] 1.020 Urine Protein 30 H Urine Glucose (UA) Normal Urine Ketones 5 H Urine Occult Blood 10 H Urine Nitrite Negative Urine Bilirubin 1 H Urine Urobilinogen Normal Ur Leukocyte Esterase 25 H Urine RBC 0-5 SEEN Urine WBC 5-10 SEEN Ur Squamous Epith Cells 10-25 SEEN Urine Bacteria 1+ Urine Mucus RARE <Dr. Marty Torre, DO - Last Filed: 10/20/24 12:50> [facility] Lab Data Labs: Laboratory Results - last 24 hr 10/20/24 10/20/24 11:25 11:54 WBC 1.3 L* RBC 4.60 Hgb 14.3 Hct 43.2 MCV 93.9 MCH 31.1 MCHC 33.1 RDW Std Deviation 43.4 RDW Coeff of Janet 12.5 Plt Count 114 L MPV 13.8 H Neut % (Auto) Not Reportable Absolute Neuts (auto) 0.8 L Absolute Lymphs (auto) 0.41 L Total Counted 100 Neutrophils % (Manual) 59 Band Neutrophils % 1 Lymphocytes % (Manual) 31 Monocytes % (Manual) 4 Eosinophils % (Manual) 1 Metamyelocytes % 4 H Diff Path Review May foll Reactive Lymphocytes 2+ Platelet Estimate SLT DEC RBC Morphology Sodium 135 L Potassium 3.8 Chloride 104 Carbon Dioxide 21.0 Anion Gap 9 BUN 17 Creatinine 0.95 Estim Creat Clear Calc 68.24 Est GFR (MDRD) Af Amer 75 Est GFR (MDRD) Non-Af 62 BUN/Creatinine Ratio 17.8 Glucose 162 H Calcium 8.5 Urine Color Yellow Urine Clarity Clear Urine pH 6.0 Ur Specific [place] 1.020 Urine Protein 30 H Urine Glucose (UA) Normal Urine Ketones 5 H Urine Occult Blood 10 H Urine Nitrite Negative Urine Bilirubin 1 H Urine Urobilinogen Normal Ur Leukocyte Esterase 25 H Urine RBC 0-5 SEEN Urine WBC 5-10 SEEN Ur Squamous Epith Cells 10-25 SEEN Urine Bacteria 1+ Urine Mucus RARE Treatment and Re-Evaluation :: I have personally performed a face to face assessment of the patient and have reviewed the DEMIAN Note. I performed a substantive portion of the visit including all aspects of the following. My roberts findings include: History: Patient presents with sores in her mouth that began today. Patient received her first dose of chemotherapy recently. Patient states that she started having sores in her mouth today. Patient states she is unable to eat or drink anything. Patient was concerned that she is becoming dehydrated. Patient admits to a fever of 101 at home but denies any fevers here. Patient admits to a mild cough but denies any chest pain or shortness of breath. Patient states she did have an episode of nausea and vomiting. Exam: Vital signs are stable except for mild tachycardia of 122. Patient is afebrile here. Patient is in no acute distress. Oral mucosa is pink and moist. Oropharynx is erythematous. There are some superficial aphthous ulcers noted. There is some oral candidiasis noted on the tongue. Neck is supple. Trachea is midline. There is no JVD. Heart was regular and tachycardic. Lungs are clear and equal bilaterally. Abdomen is soft. Bowel sounds are normal. There is no tenderness. Cranial nerves II through XII are intact. There are no focal motor or sensory deficits noted. Medical Decision Making: Differential diagnosis includes medication side effect, neutropenia, dehydration, electrolyte abnormality, and urinary tract infection. CBC will be obtained to assess for leukocytosis and anemia. Basic metabolic profile will be obtained to assess for electrolyte abnormality and renal function. Urinalysis will be obtained to assess for urinary tract infection and hematuria. Urine culture will be obtained to assess for urinary tract infection. Patient was given IV fluids. CBC was reviewed. White blood cell count was slightly low at 1.3. Platelets were slightly low at 114. The remainder is within normal limits. Basic metabolic profile was reviewed. Glucose was slightly elevated at 162. The remainder was within normal limits. Urinalysis was reviewed. There is a contaminated specimen with 10-25 epithelial cells. There are 5-10 white blood cells and 0-5 red blood cells. Patient was feeling better on reevaluation. Patient was advised of her findings. Patient was instructed to follow-up tomorrow for her Mediport placement as scheduled. Patient was instructed to return if worse in any way. Patient understood and was agreeable with the plan. All questions were answered. Discharge Plan Triage Chief Complaint: Other, Pain/Inj ED Midlevel Provider: Latonia Brown ED Provider: Marty Torre Dx/Rx/DC Orders Clinical Impression: Acute mucositis, Dehydration, Drug-induced leukopenia, Thrombocytopenia, Chemotherapy adverse reaction Instructions: Dehydration Prescriptions: No Action amlodipine 2.5 mg tablet 2.5 mg PO DAILY Patient Comments: [NO ORIGINAL SIG] levothyroxine 25 mcg tablet 25 mcg PO DAILY Patient Comments: [NO ORIGINAL SIG] pantoprazole 40 mg tablet,delayed release (DR/EC) 40 mg PO DAILY Patient Comments: [NO ORIGINAL SIG] cholecalciferol (vitamin D3) 25 mcg (1,000 unit) capsule 25 mcg PO QDAY multivitamin Tablet 1 tab PO QAM calcium carbonate 600 mg calcium (1,500 mg) tablet 600 mg PO QDAY zinc acetate 50 mg (zinc) capsule 50 mg PO QDAY metoprolol succinate 25 mg tablet extended release 24 hr 12.5 mg PO DAILY Patient Comments: TAKE 1/2 TABLET BY MOUTH ONCE DAILY trospium 20 mg tablet 20 mg PO BID Patient Comments: TAKE 1 TABLET BY MOUTH TWICE A DAY NewFlora 10 billion cell capsule 100 mmu cells PO DAILY Primary Care Provider: Yaquelin Miller Referrals: Yaquelin Miller MD [Primary Care Provider] - Activity Restrictions/Additional Instructions: Your white blood cell count and your platelets are low which is from the chemotherapy. Your kidney function is normal. I recommend you use the prescribed mouthwash, push fluids to stay hydrated, and follow-up for your port placement tomorrow. Please make sure you are in contact with your oncologist to let them know about your blood work. Print Language: Icelandic Disposition Disposition: Home, Self Care Discharge Date/Time: 10/20/24 13:15
[2024-10-20 11:42] VITALS: BP 111/78; PULSE 100; RESP 16; TEMP 37.2; O2SAT 93
[2024-10-20 11:45] LABS: Hematocrit 43.2 % (37-47); Hemoglobin 14.3 g/dL (12.0-15.0); Mean Corp Hgb Conc 33.1 g/dL (32-36); Mean Corpuscular Hgb 31.1 pg (27.0-32.0); Mean Corpuscular Volume 93.9 fL (81-99); Mean Platelet Vol. 13.8 fl (6.2-12.0); POSITIVE COUNT YES; POSITIVE DIFFERENTIAL YES; POSITIVE MORPHOLOGY YES; Platelet Count 114 K/mm3 (150-450); RBC Distribution Width CV 12.5 % (11.6-14.6); RBC Distribution Width SD 43.4 fl (35.1-43.9); White Blood Count 1.3 K/mm3 (4.4-11.0)
[2024-10-20] MEDS: 0.9% Normal Saline (1000mL) 1,000 ML 999 ML IV (11:45)
[2024-10-20 12:02] LABS: Anion Gap 9 (5-15); BUN 17 mg/dL (7-18); BUN/Creat Ratio 17.8 RATIO (10-20); Calcium,Total 8.5 mg/dL (8.5-10.1); Chloride 104 mmol/L (98-107); Creatinine, Serum 0.95 mg/dL (0.55-1.02); EST Glomerular Filtration Rate 62 mL/min (>60); Est Glom Filt Rate - Afr Amer 75 mL/min (>60); Estimated Creatinine Clearance 68.24 ml/min; Glucose 162 mg/dL (74-106); Potassium 3.8 mmol/L (3.5-5.1); Sodium Level 135 mmol/L (136-145)
[2024-10-20 12:06] LABS: Color, Urine Yellow (Yellow); Glucose, Dipstick Normal (Normal); Ketone-Dipstick 5 mg/dl (Negative); Leukocyte Esterase-Dipstick 25 /ul (Negative); Nitrite-Dipstick Negative (Negative); Occult Blood-Urine 10 /ul (Negative); Protein-Dipstick 30 mg/dl (Negative); Urine Clarity Clear (Clear); Urine Urobilinogen Normal (Normal)
[2024-10-20 12:08] LABS: Urine Bilirubin Dipstick 1 mg/dL (Negative)
[2024-10-20 12:16] LABS: Differential Indicated MANUAL DIFF
[2024-10-20 12:23] LABS: Eosinophil 1 % (0-5); Lymphocyte 31 % (19-41); Metamyelocyte 4 % (0-1); Monocyte 4 % (0-10); Neutrophil-Band 1 % (0-5); Neutrophil-Segmented 59 % (47-70); Total Cells Counted 100 (MANUAL DIFF)
[2024-10-20 12:24] LABS: Platelet Estimate SLT DEC (ADEQ)
[2024-10-20 12:25] LABS: Absolute Neutrophil Count 0.8 X10^3/uL (2.0-7.7)
[2024-10-20 12:27] LABS: Reactive Lymphocyte 2+
[2024-10-20 12:28] LABS: Red Blood Cells-Urine 0-5 SEEN /hpf (0-5); Squamous Epithelial Cells - UA 10-25 SEEN /hpf (5-10); White Blood Cells 5-10 SEEN /hpf (0-5)
[2024-10-20 12:29] LABS: Bacteria 1+ /hpf (None Seen); Mucous, Urine RARE /hpf (<or=2+)
[2024-10-20 12:32] LABS: Absolute Lymphocyte Count 0.41 X10^3/uL (0.83-4.51)
[2024-10-20 12:48] VITALS: BP 123/93; PULSE 78; RESP 18; TEMP 37.2; O2SAT 95
[2024-10-20 13:09] VITALS: BP 123/93; PULSE 78; RESP 18; TEMP 37.2; O2SAT 95
[2024-10-22 13:54] LABS: Pathologist Review Reviewed
== END 2024-10-20 13:15 | disposition home or self-care (01) ==
PROVIDERS: Physician Assistant; Emergency Provider Emergency Medicine; PCP Internal Medicine; Visit Provider Emergency Medicine
DX: K12.30 Oral mucositis (ulcerative), unspecified (principal); C50.919 Malignant neoplasm of unspecified site of unspecified female breast; B37.0 Candidal stomatitis; D70.1 Agranulocytosis secondary to cancer chemotherapy; T45.1X5A Adverse effect of antineoplastic and immunosuppressive drugs, initial encounter; D69.6 Thrombocytopenia, unspecified; E86.0 Dehydration; R82.71 Bacteriuria; R30.0 Dysuria; I10 Essential (primary) hypertension; K21.9 Gastro-esophageal reflux disease without esophagitis; E78.5 Hyperlipidemia, unspecified; E07.9 Disorder of thyroid, unspecified; M81.0 Age-related osteoporosis without current pathological fracture; Z90.49 Acquired absence of other specified parts of digestive tract; Z79.890 Hormone replacement therapy; Z79.899 Other long term (current) drug therapy
CPT/HCPCS: 80048; 81001; 85025; 87086; 87088; 87186; 96360; 99283; A4216

== ENCOUNTER 2024-11-12 08:08 | Outpatient (CLI) | payer MEDICARE, OTHER, SELFPAY ==
[2024-11-12] MEDS: 0.9% Normal Saline (1000mL) 1,000 ML 500 ML IV (08:32)
[2024-11-12 08:35] VITALS: BP 134/83; PULSE 108; RESP 16; TEMP 36.6; O2SAT 95; BMI 43.0
[2024-11-12 10:41] VITALS: BP 117/66; PULSE 100; RESP 16
== END 2024-11-12 23:59 | disposition home or self-care (01) ==
LOC: MEDOUTP 08:08
PROVIDERS: PCP Internal Medicine; Referring Provider Physician Assistant; Visit Provider Physician Assistant
DX: R11.2 Nausea with vomiting, unspecified (principal); C50.912 Malignant neoplasm of unspecified site of left female breast; R19.7 Diarrhea, unspecified; Z71.89 Other specified counseling
CPT/HCPCS: 96360; 96361; A4216

== ENCOUNTER 2024-12-05 09:04 | Outpatient (CLI) | payer MEDICARE, OTHER, SELFPAY ==
[2024-12-05 09:05] VITALS: BP 130/67; PULSE 94; RESP 16; TEMP 35.9; O2SAT 95; BMI 45.1
[2024-12-05] MEDS: 0.9% Normal Saline (1000mL) 1,000 ML 500 ML IV (09:21)
[2024-12-05 11:36] VITALS: BP 136/68; PULSE 76; RESP 16; TEMP 35.8; O2SAT 95
== END 2024-12-05 23:59 | disposition home or self-care (01) ==
LOC: MEDOUTP 09:04
PROVIDERS: PCP Internal Medicine; Referring Provider Physician Assistant; Visit Provider Physician Assistant
DX: R11.2 Nausea with vomiting, unspecified (principal); C50.912 Malignant neoplasm of unspecified site of left female breast; R19.7 Diarrhea, unspecified; Z71.89 Other specified counseling
CPT/HCPCS: 96360; 96361; A4216

== ENCOUNTER 2024-12-23 08:46 | Outpatient (CLI) | payer MEDICARE, OTHER, SELFPAY ==
[2024-12-23] MEDS: 0.9% Normal Saline (1000mL) 1,000 ML 500 ML IV (08:58)
[2024-12-23 09:02] VITALS: BP 141/73; PULSE 89; RESP 16; TEMP 36.5; O2SAT 94; BMI 44.6
[2024-12-23 11:10] VITALS: BP 171/79; PULSE 86; RESP 16; TEMP 36.3; O2SAT 97
== END 2024-12-23 23:59 | disposition home or self-care (01) ==
LOC: MEDOUTP 08:48
PROVIDERS: PCP Internal Medicine; Referring Provider Physician Assistant; Visit Provider Physician Assistant
DX: R11.2 Nausea with vomiting, unspecified (principal); C50.912 Malignant neoplasm of unspecified site of left female breast; R19.7 Diarrhea, unspecified; Z71.89 Other specified counseling
CPT/HCPCS: 96360; 96361; A4216

== ENCOUNTER 2025-01-13 11:20 | Outpatient (CLI) | payer MEDICARE, OTHER, SELFPAY ==
[2025-01-13 11:50] VITALS: BP 135/96; PULSE 95; RESP 16; TEMP 36.4; O2SAT 95; BMI 45.3
[2025-01-13] MEDS: 0.9% Normal Saline (1000mL) 1,000 ML 500 ML IV (11:53)
[2025-01-13 14:13] VITALS: BP 135/96; PULSE 95; RESP 16; TEMP 36.4; O2SAT 95
== END 2025-01-13 23:59 | disposition home or self-care (01) ==
LOC: MEDOUTP 11:21
PROVIDERS: PCP Internal Medicine; Referring Provider Physician Assistant; Visit Provider Physician Assistant
DX: R11.2 Nausea with vomiting, unspecified (principal); C50.912 Malignant neoplasm of unspecified site of left female breast; Z71.89 Other specified counseling; R19.7 Diarrhea, unspecified
CPT/HCPCS: 96360; 96361; A4216

== ENCOUNTER 2025-02-03 08:24 | Outpatient (CLI) | payer MEDICARE, OTHER, SELFPAY ==
[2025-02-03] MEDS: 0.9% Normal Saline (1000mL) 1,000 ML 500 ML IV (08:40)
[2025-02-03 08:44] VITALS: BP 119/66; PULSE 88; RESP 16; TEMP 36.1; O2SAT 98; BMI 45.1
[2025-02-03 10:58] VITALS: BP 119/71; PULSE 82; RESP 14; TEMP 36.1; O2SAT 96
== END 2025-02-03 23:59 | disposition home or self-care (01) ==
PROVIDERS: PCP Internal Medicine; Referring Provider Physician Assistant; Visit Provider Physician Assistant
DX: R11.2 Nausea with vomiting, unspecified (principal); C50.912 Malignant neoplasm of unspecified site of left female breast; R19.7 Diarrhea, unspecified; Z71.89 Other specified counseling
CPT/HCPCS: 96360; 96361

== ENCOUNTER → 2025-04-15 | Outpatient (CLI) | payer MEDICARE, OTHER, SELFPAY ==
--- NOTE | 2025-04-15 09:33 | ECHOD_ITS ---
Reason For Study Reason For Study: CHEMOTHERAPY Procedure This was a 2D Doppler, Color Flow transthoracic echocardiogram. Myocardial strain analysis was performed in this exam to aid in the assessment of cardiac function. Contrast injection was performed. Exam performed in department. Left Ventricle Normal LV size. The global longitudinal strain = -19.5 % (normal). The left ventricular ejection fraction is 65 %. No regional wall motion abnormalities noted. Right Ventricle Normal RV size. Normal systolic function. Atria Normal left atrium. Normal right atrium. Mitral Valve Normal mitral valve. Tricuspid Valve Normal tricuspid valve. Aortic Valve Trisinus/trileaflet aortic valve. Pulmonic Valve Normal pulmonic valve. Great Vessels Normal aortic root. The pulmonary artery is normal size. Normal inferior vena cava. Pericardium/Pleural No pericardial effusion. Medication 22 gauge I.V. with prn adaptor inserted into left arm. Diluted definity 2ml given slow IV push to enhance endocardial definition. MMode/2D Measurements & Calculations LVIDd: 5.0 cm IVSd: 0.95 cm LVOT diam: 2.0 cm LVIDs: 3.1 cm LVPWd: 0.94 cm RVDd: 4.0 cm FS: 37.2 % LVOT area: 3.2 cm2 asc Aorta Diam: 3.6 cm LAV(MOD-bp): 40.2 ml LVAd ap4: 26.4 cm2 LAV(MOD-bp) Indexed: 19.1 ml/m2 LVLd ap4: 7.8 cm LAV(MOD-sp2): 35.7 ml EDV(MOD-sp4): 72.5 ml LAV(MOD-sp4): 41.5 ml EDV(sp4-el): 75.7 ml LVAs ap4: 15.8 cm2 LVLs ap4: 6.7 cm ESV(MOD-sp4): 31.5 ml ESV(sp4-el): 31.4 ml EF(MOD-sp4): 56.5 % EF(sp4-el): 58.5 % LVAd ap2: 24.7 cm2 SV(MOD-sp4): 41.0 ml SV(MOD-sp2): 37.3 ml LVLd ap2: 7.5 cm SI(MOD-sp4): 19.5 ml/m2 SI(MOD-sp2): 17.7 ml/m2 EDV(MOD-sp2): 68.5 ml EDV(sp2-el): 69.0 ml LVAs ap2: 15.5 cm2 LVLs ap2: 6.7 cm ESV(MOD-sp2): 31.2 ml ESV(sp2-el): 30.6 ml EF(MOD-sp2): 54.5 % SV(sp4-el): 44.2 ml Ao sinus diam: 3.[address] Junction: 2.7 cm LA dimension(2D): 3.9 cm LA A4 area: 17.5 cm2 RA A4 area: 17.2 cm2 TAPSE: 2.0 cm Time Measurements MV dec time: 0.15 sec Doppler Measurements & Calculations MV E max danny: 65.6 cm/sec Lat Peak E' Danny: 11.0 cm/sec Med Peak E' Danny: 10.4 cm/sec MV A max danny: 54.5 cm/sec E/E' lat: 6.0 E/E' med: 6.3 MV E/A: 1.2 MV dec slope: 440.8 cm/sec2 Ao V2 max: 131.0 cm/sec LV V1 max: 90.0 cm/sec Ao max P.9 mmHg LV V1 max P.2 mmHg Ao V2 mean: 91.6 cm/sec LV V1 mean P.2 mmHg Ao mean P.8 mmHg LV V1 mean: 71.8 cm/sec Ao V2 VTI: 33.2 cm LV V1 VTI: 23.2 cm AV (velocity ratio): 0.70 KHURRAM(I,D): 2.3 cm2 KHURRAM(V,D): 2.2 cm2 SV(LVOT): 75.1 ml PA V2 max: 79.1 cm/sec TR max danny: 246.0 cm/sec TR max P.2 mmHg ECHO/ONC Echo Complete W/ Contrast Interpretation Summary Normal LV size. The global longitudinal strain = -19.5 % (normal). The left ventricular ejection fraction is 65 %. Contrast injection was performed. Compared to previous study, the left ventricu lar systolic function is the same.. Ordering Physician: Bethanie Scott Referring Physician: Bethanie Scott Performed By: Patsy Duff RDCS
== END | disposition home or self-care (01) ==
LOC: CVS 09:29
PROVIDERS: PCP Internal Medicine; Referring Provider Physician Assistant; Visit Provider Physician Assistant
DX: Z51.11 Encounter for antineoplastic chemotherapy (principal); C50.912 Malignant neoplasm of unspecified site of left female breast
CPT/HCPCS: 93306; 93356; Q9957; A4216; C8929

== ENCOUNTER → 2025-05-05 | Outpatient (CLI) | payer MEDICARE, OTHER, SELFPAY | END | disposition home or self-care (01) | LOC: LABSPEC 11:06 | PROVIDERS: PCP Internal Medicine; Referring Provider Obstetrics & Gynecology; Visit Provider Obstetrics & Gynecology | DX: N90.7 Vulvar cyst (principal) | CPT/HCPCS: 87070; 87205 ==

== ENCOUNTER → 2025-06-18 | Outpatient (CLI) | payer MEDICARE, OTHER, SELFPAY ==
--- NOTE | 2025-06-18 13:33 | ECHOCS_ITS ---
Reason For Study Reason For Study: Chemotherapy/Breast Cancer Procedure This was a 2D Doppler, Color Flow transthoracic echocardiogram. Technically difficult study. Unable to perform Strain analysis due to poor acoustic windows. Contrast injection performed. Exam performed in department. Left Ventricle Normal LV size. The left ventricular ejection fraction is 55 %. Stage 1 diastolic dysfunction. No regional wall motion abnormalities noted. Right Ventricle Normal RV size. Normal systolic function. Atria Normal left atrium. Normal right atrium. Mitral Valve Normal mitral valve. Tricuspid Valve Normal tricuspid valve. Aortic Valve Trisinus/trileaflet aortic valve. Pulmonic Valve Normal pulmonic valve. Great Vessels Normal sized aortic root. The pulmonary artery is normal size. Inferior vena cava collapse with respiration. Pericardium/Pleural No pericardial effusion. Medication 22 gauge I.V. with prn adaptor inserted into right arm. Diluted definity 3ml given slow IV push to enhance endocardial definition. MMode/2D Measurements & Calculations LVIDd: 3.9 cm IVSd: 1.4 cm Ao root diam: 3.5 cm LVIDs: 2.8 cm LVPWd: 1.0 cm RVDd: 3.2 cm FS: 27.0 % LAV(MOD-bp): 51.7 ml LVAd ap4: 25.0 cm2 SV(MOD-sp4): 37.0 ml LAV(MOD-bp) Indexed: 25.1 ml/m2 LVLd ap4: 7.2 cm SI(MOD-sp4): 18.0 ml/m2 LAV(MOD-sp2): 45.8 ml EDV(MOD-sp4): 70.6 ml LAV(MOD-sp4): 56.9 ml EDV(sp4-el): 74.2 ml LVAs ap4: 15.9 cm2 LVLs ap4: 6.2 cm ESV(MOD-sp4): 33.7 ml ESV(sp4-el): 34.5 ml EF(MOD-sp4): 52.3 % EF(sp4-el): 53.6 % SV(sp4-el): 39.8 ml LA A4 area: 20.7 cm2 LA dimension(2D): 4.3 cm RA A4 area: 16.6 cm2 TAPSE: 2.4 cm Time Measurements MV dec time: 0.20 sec Doppler Measurements & Calculations MV E max danny: 55.7 cm/sec Lat Peak E' Danny: 10.6 cm/sec Med Peak E' Danny: 9.9 cm/sec MV A max danny: 61.5 cm/sec E/E' lat: 5.2 E/E' med: 5.6 MV E/A: 0.91 MV V2 max: 85.4 cm/sec MV P1/2t max danny: 77.6 cm/sec Ao V2 max: 115.6 cm/sec MV max P.9 mmHg MV P1/2t: 74.5 msec Ao max P.4 mmHg MV V2 mean: 49.3 cm/sec MV dec slope: 305.2 cm/sec2 Ao V2 mean: 84.5 cm/sec MV mean P.1 mmHg MVA(P1/2t): 3.0 cm2 Ao mean P.2 mmHg MV V2 VTI: 22.6 cm Ao V2 VTI: 27.7 cm AV (velocity ratio): 0.81 LV V1 max: 97.3 cm/sec PA V2 max: 93.7 cm/sec LV V1 max P.8 mmHg PA V2 mean: 66.6 cm/sec LV V1 mean P.2 mmHg LV V1 mean: 70.0 cm/sec LV V1 VTI: 22.3 cm ECHO/Echo Complete W/ Contrast Interpretation Summary Normal LV size. The left ventricular ejection fraction is 55 %. Stage 1 diastolic dysfunction. Contrast injection was performed. Ordering Physician: Bethanie Scott Referring Physician: Bethanie Scott Performed By: Etienne Velazquez RCS
== END | disposition home or self-care (01) ==
PROVIDERS: PCP Internal Medicine; Referring Provider Physician Assistant; Visit Provider Physician Assistant
DX: Z51.11 Encounter for antineoplastic chemotherapy (principal); C50.912 Malignant neoplasm of unspecified site of left female breast
CPT/HCPCS: 93306; Q9957; A4216; C8929

== ENCOUNTER → 2025-09-04 | Outpatient (CLI) | payer MEDICARE, OTHER, SELFPAY ==
--- NOTE | 2025-09-04 07:55 | ECHOCS_ITS ---
Reason For Study Reason For Study: CHEMO CLEARANCE Procedure This was a 2D Doppler, Color Flow transthoracic echocardiogram. The study was technically difficult. Due to poor accoustic windows; unable to perform strain imaging. Exam performed in department. Left Ventricle Normal size and thickness. The left ventricular ejection fraction is 60 %. Right Ventricle Normal right ventricle. Atria The left and right atria are normal. Mitral Valve Trivial mitral valve insufficiency. Tricuspid Valve Trivial tricuspid valve insufficiency. Normal pulmonary artery pressure. Aortic Valve The aortic valve is not well visualized in the short axis view. Pulmonic Valve The pulmonic valve is not well visualized. Great Vessels Normal sized aortic root. Pericardium/Pleural No pericardial effusion. Medication 20 gauge I.V. with prn adaptor inserted into right arm. Diluted definity 1.5ml given slow IV push to enhance endocardial definition. MMode/2D Measurements & Calculations LVIDd: 5.0 cm IVSd: 1.0 cm Ao root diam: 3.2 cm LVIDs: 3.5 cm LVPWd: 1.0 cm FS: 30.1 % LAV(MOD-bp): 66.3 ml LVAd ap4: 16.6 cm2 SV(MOD-sp4): 20.9 ml LAV(MOD-bp) Indexed: 32.2 ml/m2 LVLd ap4: 6.2 cm SI(MOD-sp4): 10.2 ml/m2 LAV(MOD-sp2): 63.7 ml EDV(MOD-sp4): 36.6 ml LAV(MOD-sp4): 64.4 ml EDV(sp4-el): 37.5 ml LVAs ap4: 9.7 cm2 LVLs ap4: 4.9 cm ESV(MOD-sp4): 15.7 ml ESV(sp4-el): 16.2 ml EF(MOD-sp4): 57.1 % EF(sp4-el): 56.8 % SV(sp4-el): 21.3 ml LA A4 area: 22.8 cm2 LA dimension(2D): 3.6 cm RA A4 area: 17.7 cm2 TAPSE: 2.5 cm Time Measurements MV dec time: 0.22 sec Doppler Measurements & Calculations MV E max danny: 66.4 cm/sec Lat Peak E' Danny: 10.3 cm/sec Med Peak E' Danny: 7.2 cm/sec MV A max danny: 58.7 cm/sec E/E' lat: 6.5 E/E' med: 9.2 MV E/A: 1.1 MV V2 max: 84.7 cm/sec MV P1/2t max danny: 67.4 cm/sec Ao V2 max: 133.2 cm/sec MV max P.9 mmHg MV P1/2t: 73.0 msec Ao max P.1 mmHg MV V2 mean: 46.9 cm/sec MV dec slope: 270.3 cm/sec2 Ao V2 mean: 95.3 cm/sec MV mean P.0 mmHg MVA(P1/2t): 3.0 cm2 Ao mean P.1 mmHg MV V2 VTI: 21.8 cm Ao V2 VTI: 36.5 cm AV (velocity ratio): 0.64 LV V1 max: 89.7 cm/sec PA V2 max: 79.9 cm/sec TR max danny: 220.2 cm/sec LV V1 max P.2 mmHg TR max P.4 mmHg LV V1 mean P.9 mmHg LV V1 mean: 65.4 cm/sec LV V1 VTI: 23.4 cm ECHO/Echo Complete W/ Contrast Interpretation Summary The left ventricular ejection fraction is 60 %. Technically difficult study. No strain analysis was performed because of poor a pical windows. Ordering Physician: Bethanie Scott Referring Physician: Yaquelin Miller Performed By: Ximena Lundberg, DEBI, RVT
== END | disposition home or self-care (01) ==
LOC: CVS 07:50
PROVIDERS: PCP Internal Medicine; Referring Provider Physician Assistant; Visit Provider Physician Assistant
DX: Z01.818 Encounter for other preprocedural examination (principal); C50.912 Malignant neoplasm of unspecified site of left female breast
CPT/HCPCS: 93306; Q9957; C8929